=== PATIENT | male | born 1995 | race Caucasian/White ===

== ENCOUNTER 2018-04-23 13:12 | Emergency (ER) | payer SELFPAY ==
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
[2018-04-23] MEDS ORDERED: Bacitracin OINTMENT* 0.5% 0.5 oz TUBE ONE (15:10)
[2018-04-23 15:47] VITALS: BP 130/79
== END 2018-04-23 15:41 | disposition home or self-care (01) ==
LOC: ED 13:12
DX: T22.011A Burn of unspecified degree of right forearm, initial encounter (principal); T23.001A Burn of unspecified degree of right hand, unspecified site, initial encounter; X08.8XXA Exposure to other specified smoke, fire and flames, initial encounter; W40.1XXA Explosion of explosive gases, initial encounter; Y92.9 Unspecified place or not applicable; F17.210 Nicotine dependence, cigarettes, uncomplicated; Z88.0 Allergy status to penicillin
CPT/HCPCS: 36415; 82375; 99283; A9270-GY